=== PATIENT | female | born 1955 | race African-American/Black ===

== ENCOUNTER → 2017-06-21 | Day surgery (SDC) | payer BC ==
--- NOTE | 2017-06-22 15:24 | PATH ---
Surgical Pathology Report Patient Name: PATRICIA GONZALEZ [facility]. Rec. #: [id number] /Age/Gender: 1955 (Age: 62) / F Account: [id number] Location: [facility] Taken: 06/21/2017 Received: 06/21/2017 Reported: 06/22/2017 Physicians: Samira Avila M.D. Specimen(s) Received A: RIGHT BREAST SPECIMEN SITE 1, WITH CALCIFICATIONS, POSTERIOR UPPER QUADRANT B: RIGHT BREAST SPECIMEN SITE 1, WITHOUT CALCIFICATION, POSTERIOR UPPER QUADRANT C: RIGHT BREAST SPECIMEN SITE 2, WITH CALCIFICATION, ANTERIOR D: RIGHT BREAST SPECIMEN SITE 2, WITHOUT CALCIFICATION, ANTERIOR Clinical History Nonpalpable lesion Mammographic findings: Microcalcification, suspicious Site 1 = posterior upper quadrant Site 2 = anterior Final Diagnosis A. RIGHT BREAST SPECIMEN SITE 1, WITH CALCIFICATIONS, POSTERIOR UPPER QUADRANT, STEREOTACTIC BIOPSY: BREAST TISSUE SHOWING ONE MINUTE FOCUS OF MARKED ATYPICAL PROLIFERATION WITH LYMPHOID INFILTRATE, CANNOT EXCLUDE DUCTAL CARCINOMA IN SITU (DCIS). SEE COMMENT. CALCIFICATIONS IDENTIFIED. COMMENT: THIS FOCUS NO LONGER PRESENT AT DEEPER LEVEL SECTIONS. B. RIGHT BREAST SPECIMEN SITE 1, WITHOUT CALCIFICATION, POSTERIOR UPPER QUADRANT, STEREOTACTIC BIOPSY: BREAST TISSUE WITH FIBROCYSTIC CHANGES INCLUDING FIBROSIS, DUCTAL ECTASIA, AND FEW LYMPHOCYTIC INFILTRATE. CALCIFICATIONS IDENTIFIED. C. RIGHT BREAST SPECIMEN SITE 2, WITH CALCIFICATION, ANTERIOR, STEREOTACTIC BIOPSY; DUCTAL CARCINOMA IN SITU (DCIS), CRIBRIFORM TYPE, HIGH NUCLEAR GRADE WITH NECROSIS AND CALCIFICATIONS. D. RIGHT BREAST SPECIMEN SITE 2, WITH CALCIFICATION, ANTERIOR, STEREOTACTIC BIOPSY: BREAST TISSUE WITH FIBROSIS AND FOCAL LYMPHOCYTIC INFILTRATE. Note: Case reviewed in intradepartmental consultation with consensus on diagnosis. This case was discussed with on June 22, 2017. Electronically Signed Velia Magaña M.D. Addendum Reported: 06/23/2017 Addendum Diagnosis Results of Estrogen Receptor (ER) and Progesterone Receptor (UT) studies performed on block "C1" at [facility] are as follows: ER (clone [id number] mouse monoclonal antibody by [employer]): 10% nuclear staining with weak intensity (Positive). UT (clone16 mouse monoclonal antibody by [employer]): 0% nuclear staining (Negative). Positive and negative controls (internal if applicable) show appropriate results. Formalin fixation and cold ischemic times are within current ASCO/CAP recommendations for ER, UT and Her2 testing. Velia Magaña M.D. Gross Description A. Received in formalin labeled "site 1 posterior upper quadrant right breast with calcifications," are 5 viramontes-yellow, cylindrical portions of fibroadipose tissue ranging from 1.2-2.5 cm in length and averaging 0.3 cm in diameter. The specimens are submitted in toto in one cassette. B. Received in formalin labeled "site 1 posterior upper quadrant right breast without calcifications," are 6 viramontes-yellow, cylindrical portions of fibroadipose tissue ranging from 0.5-2.5 cm in length and averaging 0.3 cm in diameter. The specimens are submitted in toto in one cassette. C. Received in formalin labeled "site 2 anterior right breast with calcifications," is a 2.5 x 1.8 x 0.3 cm aggregate of multiple viramontes-yellow, irregular to cylindrical portions of fibroadipose tissue. The formalin is filtered and the specimen is entirely submitted in one cassette. D. Received in formalin labeled "site 2 anterior right breast without calcifications," are 2 viramontes-yellow, cylindrical portions of fibroadipose tissue measuring 1.5 and 2.8 cm in length and averaging 0.3 cm in diameter. The specimens are submitted in toto in one cassette. Time to formalin fixation: 5 minutes Total formalin fixation time: Approximately 6 hours. 06/21/201706/21/2017
== END | disposition home or self-care (01) ==
LOC: FMAMMOTONE 10:03
PROVIDERS: ATTEND Surgery
PROC: 0HBT3ZX Excision of Right Breast, Percutaneous Approach, Diagnostic (ICD-10-PCS; principal; 2017-06-21)
DX: N60.11 Diffuse cystic mastopathy of right breast (principal); R92.1 Mammographic calcification found on diagnostic imaging of breast; N60.49 Mammary duct ectasia of unspecified breast
CPT/HCPCS: 19081; 19082; 87899; 88305-TC; A4648